=== PATIENT | male | born 1945 | race Caucasian/White ===

== ENCOUNTER → 2018-11-17 | Day surgery (SDC) | payer MEDICARE ==
[~2018-11-17] MED LIST: ASPIR 8181 MG PO; CARVEDILOL12.5 MG PO; DILTIAZEM 24HR180 M1 PO; FENTANYL CITRATE/PF 100MCG/2 ML INJ ONE; FLOMAX0.4 MG PO; GLIPIZIDE5 MG PO; JALYN 0.5-0.41 EACH; LISINOPRIL10 MG PO; METFORMIN HCL1000 MG PO; METFORMIN HCL500 M1 PO; METFORMIN HCL500 MG PO; MIDAZOLAM HCL 2 MG/2 ML VIAL ONE; OMEPRAZOLE40 MG PO; OR PHACO EYE KIT ONE; PREOP PHACO EYE KIT ONE; TOBRAMYCIN/DEXAMETHASONE(OPTH) 3.5 GM TUBE ONE; VYTORIN 10-201 EACH PO; WARFARIN SODIU2.5 MG PO
--- OUTSIDE RECORDS SUMMARY | 2018-11-17 11:35 | XMS REPORT ---
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 Allergies, Adverse Reactions, Alerts Allergy Name Allergy Type Status Severity Reaction(s) Onset Date Inactive Date Treating Clinician Comments No Known Allergies DA Active U 2018-10-22 00:00:00 No Known Allergies DA Active U 2011-11-27 00:00:00 Medications This patient has no known medications.
[2018-11-17 13:39] LABS: INR 1.68; PARTIAL THROMBOPLASTIN TIME 32.4 seconds (23.8-35.5); PROTHROMBIN TIME 21.1 seconds (11.9-14.5)
[2018-11-17 15:29] VITALS: BP 140/80
--- NOTE | 2018-11-17 22:46 | Operative Report ---
DATE OF PROCEDURE: November 17, 2018 PREOPERATIVE DIAGNOSES 1. Visually significant cataract of the right eye. 2. Poor dilation, right eye. POSTOPERATIVE DIAGNOSES 1. Visually significant cataract of the right eye. 2. Poor dilation, right eye. PROCEDURE: Complicated phacoemulsification of posterior chamber with intraocular lens. ANESTHESIA: MAC. COMPLICATIONS: None. LENS: Eugene SN60WF, 23.0 diopter lens. Patient was taken to the operating room where the patient had tetracaine 0.5% drops placed in the eye. Patient's eye was then prepped and draped in the usual sterile ophthalmic way. A lid speculum was placed in the right eye, and a side port incision was made. Then, 0.2 mL of 1% lidocaine preservative-free was injected into the anterior chamber. Secondary to poor dilation, a Malyugin ring was used to dilate the pupil. Patient is currently using Flomax. Viscoelastic was placed in the anterior chamber. A keratome was used to make a temporal clear corneal incision. A cystotome and Utrata forceps were used to create an anterior capsulorrhexis without any complication. Hydrodissection and hydrodelineation were then performed and a good fluid wave was noted. Phacoemulsification probe was placed in the eye, and the nucleus was phacoemulsified using the divide and conquer technique. Irrigation-aspiration hand piece was then used to remove any residual cortical material. Viscoelastic was placed in the capsular bag. An Eugene SN60WF was placed in the bag without any complications. Irrigation-aspiration hand piece was then used to remove any residual viscoelastic material from within the eye. The Malyugin ring was then removed and Miostat was injected into the anterior chamber. The wound was checked to make sure there was no evidence of leakage. Two drops of Vigamox was placed in the eye. Once this was done, the patient had Maxitrol ointment, a patch and Sanders shield on the eye. Patient tolerated the procedure well and will be taken to the recovery room in good condition. Patient will be seen in my office tomorrow. Job#: [id number]
== END | disposition home or self-care (01) ==
LOC: OR 11:34
PROVIDERS: ATTEND Ophthalmology
DX: H25.11 Age-related nuclear cataract, right eye (principal); I25.10 Atherosclerotic heart disease of native coronary artery without angina pectoris; I10 Essential (primary) hypertension; E78.5 Hyperlipidemia, unspecified; E11.9 Type 2 diabetes mellitus without complications; I48.91 Unspecified atrial fibrillation; K21.9 Gastro-esophageal reflux disease without esophagitis; Z88.1 Allergy status to other antibiotic agents; Z79.01 Long term (current) use of anticoagulants; Z79.82 Long term (current) use of aspirin; Z79.84 Long term (current) use of oral hypoglycemic drugs; Z86.2 Personal history of diseases of the blood and blood-forming organs and certain disorders involving the immune mechanism; Z95.5 Presence of coronary angioplasty implant and graft
CPT/HCPCS: 36415; 66982; 82948; 85610; 85730; J2250

== ENCOUNTER → 2018-12-01 | Day surgery (SDC) | payer MEDICARE ==
[~2018-12-01] MED LIST changes: -TOBRAMYCIN/DEXAMETHASONE(OPTH) 3.5 GM TUBE ONE
[2018-12-01 13:25] VITALS: BP 144/73
--- NOTE | 2018-12-02 08:23 | Operative Report ---
DATE OF PROCEDURE: December 01, 2018 PREOPERATIVE DIAGNOSES 1. Visually significant cataract of the left eye. 2. Poor dilation, left eye. POSTOPERATIVE DIAGNOSES 1. Visually significant cataract of the left eye. 2. Poor dilation, left eye. PROCEDURE: Complicated phacoemulsification and posterior chamber intraocular lens. ANESTHESIA: MAC. COMPLICATIONS: None. DESCRIPTION OF PROCEDURE: The patient was taken to the operating room where he had tetracaine 0.5% drops placed in the eye. Patient's left eye was prepped and draped in the usual sterile ophthalmic way. A lid speculum was placed in the eye, and a side port incision was made. Then, 0.2 mL of 1% lidocaine preservative-free was injected into the anterior chamber. Viscoelastic was placed in the anterior chamber, and a keratome was used to make a temporal clear corneal incision. A Malyugin ring was used to dilate the pupil secondary to poor dilation. A cystotome and Utrata forceps were used to create an anterior capsulorrhexis without any complication. Hydrodissection and hydrodelineation were then performed. A phacoemulsification probe was placed in the eye, and the nucleus was phacoemulsified using the divide and conquer technique. Irrigation and aspiration handpiece was then used to remove any residual cortical material. Viscoelastic was placed in the capsular bag. An Eugene SN60WF 22.5 diopter lens was placed in the bag without any complications. Irrigation and aspiration handpiece was used to remove any residual viscoelastic material from within the eye. Miostat was injected into the anterior chamber. The wound was checked to make sure there was no evidence of leakage. The Malyugin ring was then removed. Two drops of Vigamox were placed in the eye. Once this was done, the patient had Maxitrol ointment, a patch and Sanders shield placed on the eye. Patient tolerated the procedure well and was taken to the recovery room in good condition. Patient will be seen in my office tomorrow. Job#: [id number]
== END | disposition home or self-care (01) ==
LOC: OR 10:15
PROVIDERS: ATTEND Ophthalmology
DX: H25.12 Age-related nuclear cataract, left eye (principal); H57.09 Other anomalies of pupillary function; E11.9 Type 2 diabetes mellitus without complications; I10 Essential (primary) hypertension; I48.91 Unspecified atrial fibrillation; E78.5 Hyperlipidemia, unspecified; Z88.1 Allergy status to other antibiotic agents; Z88.3 Allergy status to other anti-infective agents; Z79.01 Long term (current) use of anticoagulants; Z79.84 Long term (current) use of oral hypoglycemic drugs; Z79.82 Long term (current) use of aspirin; Z86.2 Personal history of diseases of the blood and blood-forming organs and certain disorders involving the immune mechanism
CPT/HCPCS: 36415; 66982; 82948; J2250; V2632